=== PATIENT | male | born 1970 | race Caucasian/White ===

== ENCOUNTER 2024-09-03 23:44 | Outpatient (BNV) | payer OTHER, MEDICAID, SELFPAY | END 2024-09-05 17:10 | PROVIDERS: Admitting Provider Psychiatry & Neurology Psychiatry; Visit Provider Radiology Diagnostic Radiology | DX: F48.2 Pseudobulbar affect (principal); F39 Unspecified mood [affective] disorder | CPT/HCPCS: 70551 ==

== ENCOUNTER 2024-09-03 23:44 | Inpatient (IN) | payer MEDICAID, OTHER, SELFPAY ==
--- NOTE | ~2024-09-03 | MR_ITS ---
CLINICAL HISTORY: pseudobulbar symptoms MR Brain without gadolinium Comparison: None Findings: No restricted diffusion to indicate recent ischemia. The major intracranial vascular flow-related signal voids are maintained. No unexpected intracranial susceptibility. No mass effect or midline shift. The ventricles and basilar cisterns are patent. Increased CSF volume in the optic nerve sheaths with flattening of the posterior globes, along with flattened appearance of the pituitary gland and a mostly empty sella. Findings suggest IIH. Paranasal sinuses and mastoid air cells clear. IMPRESSION: 1. No acute finding. CSF fluid distention of the optic nerve sheath posterior globe flattening and partially empty sella raising concern for idiopathic intracranial hypertension in the appropriate clinical setting. This document has been electronically signed by: Donny Heredia MD on 09/05/2024 19:33:12
--- OUTSIDE RECORDS SUMMARY | 2024-09-03 23:47 | XMS_ITS | Encounter Summary ---
Author Organization [facility] Address [phone] [facility] [place] [address] Care Team Providers Care Trout Farmer Name Role Phone Robert Boyer DO Primary Care Provider Mariusz Lloyd MD Unavailable [phone] Encounter Details Date Type Department Care Team ([facility] Contact Info) Description 02/19/2017 Procedure Pass [facility], [place] 2 55 [facility] [address] [place] [address] Social History Tobacco Use Types Packs/Day Years Used Date Smoking Tobacco: Never Assessed Sex and Gender Information Value Date Recorded Sex Assigned at Not on file Gender Identity Not on file Sexual Orientation Not on file documented as of this encounter Plan of Treatment Not on file documented as of this encounter Visit Diagnoses Not on filedocumented in this encounter Care Teams Trout Farmer Relationship Specialty Start Date End Date Robert Boyer DO [address] [place] [address] PCP - General Internal Medicine 01/19/17 Mariusz Lloyd MD [address] [place] [address] [address] [place] [address] [email or web address] Historical LMR Provider 10/03/18 07/30/21 documented as of this encounter Additional Source Comments The information contained in this document represents components of the legal health record. It is not the complete legal health record.[facility]
--- OUTSIDE RECORDS SUMMARY | 2024-09-03 23:47 | XMS_ITS | Referral Summary ---
Author Organization [facility] Address [address] [place] [address] Care Team Providers Care Tornado Chaser Name Role Phone Robert Boyer DO Primary Care Provider Encounters Date Type Department Care Team Description 09/01/2024 Orders Only [facility] [address] [place] [address] Unknown, Doctor from Last 3 Months Allergies No known active allergies Medications citalopram (CeleXA) 20 mg tablet Take 1.5 tablets (30 mg total) by mouth once a day. Please call [phone] for an appointment 135 tablet 3 3 Active Active Problems Problem Noted Date Diagnosed Date Routine general medical exam ination at a health care facility 06/28/2020 Overview (02/26/2023): HEALTH MAINTENANCE CHECKLIST Colonoscopy (starts at avg risk people at 50): Declined colonoscopy referral, agreeable to stool based testing Prostate Cancer Screen (discussed risks/benefits of screening): We will do prostate screening with next lab draw, education provided Flu vaccine (yearly): Declined Pneumovax(one time after age 65): Shingles Vaccine (at or after age 55): Tetanus Vaccine (every 10 years): 2017 COVID-vaccine declined Assessment & Plan (01/24/2022 12:27 PM EDT): Patient was seen today for a routine physical. Colonoscopy recommended to patient, he would like to do fecal occult blood monitoring instead. Routine lab-work ordered including CBC, BMP, lipid panel. Patient also has had intermittantly elevated blood pressure measurements in clinic, and should be monitored for any signs of hypertension. Blood pressure today was 130/78. 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 Assessment & Plan (01/24/2022 12:53 PM EDT): Patient with a history of major depression on Celexa 30 mg since 2019. On this visit, he reports feeling well with improvement in depression symptoms since starting this medication. Recommend continuing current dose of Celexa. We also open the possibility of self tapering down to 20 mg daily but not going any lower than that. We will follow-up with his progress in 1 year or sooner if needed Assessment & Plan (06/28/2020 3:50 PM EST): Patient's PHQ-9 score is 0 today. Patient was previously having a few days of intermittent issues but he seems to be doing very well today and we will continue the current treatment plan Assessment & Plan (04/23/2020 3:15 PM EDT): Patient has been doing well majority of the time with the current dosage. His PHQ 9 score is 0. We talked about strategies about managing 3 days every 2 months that do not go as well as planned. We discussed the idea of increasing citalopram up to 40 mg to help prevent that from happening but in light of his reduced kidney function ultimately I think we should wait and keep him at the 30 mg and monitor further. If he has increased frequency of these issues then we could consider going up to 40 mg Assessment & Plan (06/23/2019 4:20 PM EST): Patient has had an excellent turnaround with 30 mg of citalopram. Recommended that he not adjust his dosage further without discussion with me. Plan to see him back in 3 months for follow-up. Assessment & Plan (05/21/2019 11:23 AM EDT): Patient has severe anxiety and depression. 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 He is asking if I can get records from [facility] to review. In any event, I think he requires SSRI therapy. I educated him and we will start with citalopram with aims to titrate up to 20 mg daily. 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 Oakley. Last Assessment & Plan: Mr Norman Curran is a 47 y/o male who was admitted to the Transplant Surgery Service and taken to the OR for laparoscopic, converted to open left donor nephrectomy and umbilical hernia repair on 05/22/2017. Assessment & Plan (02/26/2023 5:49 PM EDT): Recommend yearly renal function surveillance Assessment & Plan (06/23/2019 4:19 PM EST): Patient has not had any recent lab work so will be sent for CBC, Chem-7 and lipid panel Resolved Problems Problem Noted Date Diagnosed Date Resolved Date Lyme disease 02/23/2021 02/26/2023 Assessment & Plan (02/23/2021 2:24 PM EDT): Patient was diagnosed with Lyme disease based on ECM rash about a month ago. He completed 21 days of doxycycline. We discussed that due to the fact that he has had no symptoms over that time. Aside from some antibiotic related photosensitivity, serologic testing is not needed at this time. Lyme education provided Dry eye 01/08/2017 02/26/2023 Allergic conjunctivitis 10/19/2016 0711/2021 Immunizations Name Administration Dates Next Due Tetanus Toxoid, Reduced Diph theria Toxoid, and Acellular Pertussis Vaccine, Adsorbed 01/08/2017 Social History Tobacco Use Types Packs/Day Years Used Date Smoking Tobacco: Former Smokeless Tobacco: Never Comments:: Transportation Answer Date Recorded Please molly the areas for wh ich the patient would like information or assistance: None Apply 02/26/2023 Lack of Transportation (Medical) Not on file 02/26/2023 Housing Stability Answer Date Recorded Please molly the areas for ich the patient would like information or assistance: None Apply 02/26/2023 Unable to Pay for Housing in the Last Year Not o n file 02/26/2023 Last EPDS Total Score Not on file 02/26/2023 Unstable Housing in the Last Year Not on file 02/26/2023 Sex and Gender Information Value Date Recorded Sex Assigned at Male 02/25/2023 7:41 PM EDT Legal Sex Male 7:23 PM EDT Gender Identity Male 02/25/2023 7:41 PM EDT Sexual Orientation Straight 02/25/2023 7: 41 PM EDT 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 Procedure Name Priority Date/Time Associated Diagnosis Comments ACETAMINOPHEN LEVEL Routine 09/01/2024 9 :58 AM EST SALICYLATE LEVEL Routine 09/01/2024 9:58 AM EST ETHANOL Routine 09/01/2024 9:58 AM EST BASIC METABOLIC PANEL Routine 09/01/2024 9:58 AM EST CBC AUTO DIFFERENTIAL Routine 09/01/2024 9:58 AM EST from Last 3 Months Results * Due to [place] state law, this organization might not be sharing negative HIV tests. * (ABNORMAL) CBC Auto Differential (09/01/2024 9:58 AM EST) WBC 15.2(H) 4.0 - 11.0 10*3/uL 09/01/2024 9:58 AM [facility] RBC 5.27 4.2 - 6.0 10*6/uL 09/01/2024 9:58 AM [facility] Hemoglobin 15.5 12.0 - 16.0 g/dL 09/01/2024 9:58 AM [facility] Hematocrit 45.6 39.0 - 54.0 % 09/01/2024 9:58 AM [facility] MCV 86.5 80.0 - 96.0 fL 09/01/2024 9:58 AM [facility] MCH 29.4 27.0 - 31.0 pg 09/01/2024 9:58 AM [facility] MCHC 34.0 32.0 - 36.0 g/dL 09/01/2024 9:58 AM [facility] RDW 12.2(L) 12.8 - 18.4 % 09/01/2024 9:58 AM [facility] Platelet Count 389 140 - 400 10*3/uL 09/01/2024 9:58 AM [facility] MPV 9.2 8.0 - 12.0 fL 09/01/2024 9:58 AM [facility] Neut Pct Auto 76.9(H) 50 - 70 % 09/01/2024 9:58 AM [facility] Lymphs Pct Auto 13.4(L) 25 - 45 % 9:58 AM [facility] [place] Pct Auto 7.6 4 - 13 % 09/01/2024 9:58 AM [facility] Eos Pct Auto 1.3 0 - 5 % 09/01/2024 9:58 AM [facility] Baso Pct Auto 0.3 0 - 2 % 09/01/2024 9:58 AM [facility] I.G. Pct Auto 0.5 0.0 - 0.5 % 09/01/2024 9:58 AM [facility] NRBC Pct Auto 0.0 0.0 - 0.2 % 09/01/2024 9:58 AM [facility] Neut Abs Auto 11.7(H) 2.2 - 4.8 10*3/uL 09/01/2024 9:58 AM [facility] Lymph Abs Auto 2.0 1.3 - 2.9 10*3/uL 09/01/2024 9:58 AM [facility] [place] Abs Auto 1.16(H) 0.3 - 0.8 10*3/uL 09/01/2024 9:58 AM [facility] Eos Abs Auto 0.2 0.0 - 0.2 10*3/uL 09/01/2024 9:58 AM [facility] Baso Abs Auto 0.1 0.0 - 0.1 10*3/uL 09/01/2024 9:58 AM [facility] I.G. Abs Auto 0.07 0.00 - 0.08 10*3/uL 09/01/2024 9:58 AM [facility] NRBC Abs Auto 0.00 0.000 - 0.012 10*3/uL 09/01/2024 9:58 AM [facility] 09/01/2024 9:58 AM EST us Doctor Unknown LAB BLOOD ORDERABLES Final Resul t [facility] [address] [place] [address], * Ethanol (09/01/2024 9:58 AM EST) Ethanol Level <^3 <3 mg/dL 09/01/2024 9:58 AM [facility] 09/01/2024 9:58 AM EST us Doctor Unknown LAB BLOOD ORDERABLES Final Resul t Performing Organization Address [facility] [place] Phone Number [facility] [address] [place] [phone], [place] * Acetaminophen Level (09/01/2024 9:58 AM EST) Serum Acetone <^2 <2 ug/mL 09/01/2024 9:58 AM [facility] 09/01/2024 9:58 AM EST us Doctor Unknown LAB BLOOD ORDERABLES Final Resul t Performing Organization Address [facility] Phone Number [facility] [address] [place] [phone], [place] * Salicylate Level (09/01/2024 9:58 AM EST) Salicylate < 3.0 <30.0 09/01/2024 9:58 AM EST [facility] 09/01/2024 9:58 AM EST us Doctor Unknown LAB BLOOD ORDERABLES Final Resul t Performing Organization Address [facility] Phone Number [facility] [address] [place] [phone], [place] * (ABNORMAL) Basic Metabolic Panel (09/01/2024 9:58 AM EST) Sodium 143 136 - 145 mmol/L 09/01/2024 9:58 AM [facility] Potassium 4.9 3.5 - 5.1 mmol/L 09/01/2024 9:58 AM [facility] Chloride 108(H) 98 - 107 mmol/L 09/01/2024 9:58 AM [facility] Carbon Dioxide 28 20 - 31 mmol/L 09/01/2024 9:58 AM [facility] Anion Gap 7 5 - 15 mmol/L 09/01/2024 9:58 AM [facility] Glucose Random 106 74 - 106 mg/dL 09/01/2024 9:58 AM [facility] Blood Urea Nitrogen 19 9 - 23 mg/dL 09/01/2024 9:58 AM EST [facility] Serum Creatinine 1.39(H) 0.70 - 1.30 mg/dL 09/01/2024 9:58 AM [facility] Glomerular Filteration Rate Est 61 >60 09/01/2024 9:58 AM [facility] Comment: Units - mL/min/1.73 msq CKD-EPI Creatinine Equation (2020) used as recommended by The National Kidney Foundation. Start date (08/29/22). Calcium 9.9 8.3 - 10.6 mg/dL 09/01/2024 9:58 AM [facility] Comment: Please Note: New method for Calcium testing live 06/02/2024. ? New reference range live 06/02/2024. 09/01/2024 9:58 AM EST us Doctor Unknown LAB BLOOD ORDERABLES Final Resul t [facility] [address] [place] [address], from Last 3 Months Care Teams Tornado Chaser Relationship Specialty Start Date End Date Robert Boyer DO [address] [place] [phone] PCP - General Internal Medicine 02/08/17
--- OUTSIDE RECORDS SUMMARY | 2024-09-03 23:47 | XMS_ITS | Encounter Summary ---
Author Organization [facility] Address [address] [place] [address] Care Team Providers Care Quarry Supervisor Name Role Phone Robert Boyer DO Primary Care Provider [phone] Encounter Details Date Type Department Care Team (Late st Contact Info) Description 09/01/2024 Orders Only [facility] [address] [place] [address] Unknown, Doctor Unknown Unknown, [place] Social History Tobacco Use Types Packs/Day Years [...] file Not on file Not on file documented as of this encounter Plan of Treatment Not on file documented as of this encounter Procedures * Due to [place] state law, this organization might not be sharing negative HIV tests. Procedure Name Priority Date/Time Associated Diagnosis Comments CBC AUTO DIFFERENTIAL Routine 09/01/2024 9:58 AM EST ETHANOL Routine 09/01/2024 9:58 AM EST ACETAMINOPHEN LEVEL Routine 09/01/2024 9 :58 AM EST SALICYLATE LEVEL Routine 09/01/2024 9:58 AM EST BASIC METABOLIC PANEL Routine 09/01/2024 9:58 AM EST documented in this encounter Results * Due to [place] state law, this organization might not be sharing negative HIV tests. * Acetaminophen Level (09/01/2024 9:58 AM EST) Serum Acetone <^2 <2 ug/mL 09/01/2024 9:58 AM EST [facility] 09/01/2024 9:58 AM EST us Doctor Unknown LAB BLOOD ORDERABLES Final Resul t Performing Organization Address City/[facility]/ZIP Co de Phone Number [facility] [address] [place] [phone], * Salicylate Level (09/01/2024 9:58 AM EST) Salicylate < 3.0 <30.0 09/01/2024 9:58 AM EST [facility] 09/01/2024 9:58 AM EST us Doctor Unknown LAB BLOOD ORDERABLES Final Resul t Performing Organization Address City/[facility]/ZIP Co de Phone Number [facility] [address] [place] [address], * Ethanol (09/01/2024 9:58 AM EST) Ethanol Level <^3 <3 mg/dL 09/01/2024 9:58 AM EST [facility] 09/01/2024 9:58 AM EST us Doctor Unknown LAB BLOOD ORDERABLES Final Resul t Performing Organization Address City/[facility]/ZIP Co de Phone Number [facility] [address] [place] [phone], * (ABNORMAL) Basic Metabolic Panel (09/01/2024 9:58 AM EST) Sodium 143 136 - 145 mmol/L 09/01/2024 9:58 AM [facility] Potassium 4.9 3.5 - 5.1 mmol/L 09/01/2024 9:58 AM [facility] Chloride 108(H) 98 - 107 mmol/L 09/01/2024 9:58 AM [facility] Carbon Dioxide 28 20 - 31 mmol/L 09/01/2024 9:58 AM [facility] Anion Gap 7 5 - 15 mmol/L 09/01/2024 9:58 AM [facility] Glucose Random 106 74 - 106 mg/dL 09/01/2024 9:58 AM [facility] Blood Urea Nitrogen 19 9 - 23 mg/dL 09/01/2024 9:58 AM [facility] Serum Creatinine 1.39(H) 0.70 - 1.30 mg/dL 09/01/2024 9:58 AM [facility] Glomerular Filteration Rate Est 61 >60 09/01/2024 9:58 AM [facility] Comment: Units - mL/min/1.73 msq CKD-EPI Creatinine Equation (2020) used as recommended by The National Kidney Foundation. Start date (08/29/22). Calcium 9.9 8.3 - 10.6 mg/dL 09/01/2024 9:58 AM [facility] Comment: Please Note: New method for Calcium testing live 06/02/2024. ? New reference range live 06/02/2024. 09/01/2024 9:58 AM EST us Doctor Unknown LAB BLOOD ORDERABLES Final Resul t Performing Organization Address City/[facility]/ZIP Co de Phone Number [facility] [address] [place] [phone], * (ABNORMAL) CBC Auto Differential (09/01/2024 9:58 AM EST) WBC 15.2(H) 4.0 - 11.0 10*3/uL 09/01/2024 9:58 AM [facility] RBC 5.27 4.2 - 6.0 10*6/uL 09/01/2024 9:58 AM [facility] Hemoglobin 15.5 12.0 - 16.0 g/dL 09/01/2024 9:58 AM [facility] Hematocrit 45.6 39.0 - 54.0 % 09/01/2024 9:58 AM [facility] MCV 86.5 80.0 - 96.0 fL 09/01/2024 9:58 AM [facility] MCH 29.4 27.0 - 31.0 pg 09/01/2024 9:58 AM [facility] MCHC 34.0 32.0 - 36.0 g/dL 09/01/2024 9:58 AM [facility] RDW 12.2(L) 12.8 - 18.4 % 09/01/2024 9:58 AM [facility] Platelet Count 389 140 - 400 10*3/uL 09/01/2024 9:58 AM [facility] MPV 9.2 8.0 - 12.0 fL 09/01/2024 9:58 AM [facility] Neut Pct Auto 76.9(H) 50 - 70 % 09/01/2024 9:58 AM [facility] Lymphs Pct Auto 13.4(L) 25 - 45 % 9:58 AM [facility] Kings Pct Auto 7.6 4 - 13 % 09/01/2024 9:58 AM [facility] Eos Pct Auto 1.3 0 - 5 % 09/01/2024 9:58 AM [facility] Baso Pct Auto 0.3 0 - 2 % 09/01/2024 9:58 AM [facility] I.G. Pct Auto 0.5 0.0 - 0.5 % 09/01/2024 9:58 AM [facility] NRBC Pct Auto 0.0 0.0 - 0.2 % 09/01/2024 9:58 AM [facility] Neut Abs Auto 11.7(H) 2.2 - 4.8 10*3/uL 09/01/2024 9:58 AM [facility] Lymph Abs Auto 2.0 1.3 - 2.9 10*3/uL 09/01/2024 9:58 AM [facility] Kings Abs Auto 1.16(H) 0.3 - 0.8 10*3/uL 09/01/2024 9:58 AM [facility] Eos Abs Auto 0.2 0.0 - 0.2 10*3/uL 09/01/2024 9:58 AM [facility] Baso Abs Auto 0.1 0.0 - 0.1 10*3/uL 09/01/2024 9:58 AM [facility] I.G. Abs Auto 0.07 0.00 - 0.08 10*3/uL 09/01/2024 9:58 AM [facility] NRBC Abs Auto 0.00 0.000 - 0.012 10*3/uL 09/01/2024 9:58 AM [facility] 09/01/2024 9:58 AM EST us Doctor Unknown LAB BLOOD ORDERABLES Final Resul t Performing Organization Address City/State/[facility] Co de Phone Number [facility] [address] [place] [address], documented in this encounter Visit Diagnoses Not on filedocumented in this encounter Care Teams Quarry Supervisor Relationship Specialty Start Date End Date Robert Boyer DO [address] [place] [phone] PCP - General Internal Medicine 02/08/17 documented as of this encounter
--- OUTSIDE RECORDS SUMMARY | 2024-09-03 23:48 | XMS_ITS | Encounter Summary ---
Author Organization [facility] Address [phone] [facility] [place] [address] Care Team Providers Care Turnstile Collector Name Role Phone Robert Boyer DO Primary Care Provider Mariusz Lloyd MD Unavailable [phone] Encounter Details Date Type Department Care Team (Late st Contact Info) Description 12/19/2017 Telephone [facility] [address] [address] Krista Monroy MD 165 [facility] [address] [place] [phone] [email or web address] Social History Tobacco Use Types Packs/Day Years Used Date Smoking Tobacco: Former Cigarettes 1 25 Smokeless Tobacco: Never Alcohol Use Standard Drinks/Week Comments No 0 (1 standard drink = 0.6 oz pur e alcohol) Sex and Gender Information Value Date Recorded Sex Assigned at Not on file Gender Identity Not on file Sexual Orientation Not on file documented as of this encounter Plan of Treatment Not on file documented as of this encounter Visit Diagnoses Not on filedocumented in this encounter Care Teams Turnstile Collector Relationship Specialty Start Date End Date Robert Boyer DO [address] [place] [phone] PCP - General Internal Medicine 01/19/17 Mariusz Lloyd MD [address] [address] [email or web address] Historical LMR Provider 10/03/18 07/30/21 documented as of this encounter Additional Source Comments The information contained in this document represents components of the legal health record. It is not the complete legal health record.[facility]
--- OUTSIDE RECORDS SUMMARY | 2024-09-03 23:48 | XMS_ITS ---
Author Organization [facility] Address [phone] [facility] [place] [address] Care Team Providers Care Head Of Human Resources Name Role Phone Robert Boyer DO Primary Care Provider [phone] Transplant Episode Kidney Donor [facility] ([place], [place]) - [facility] Organ Donated: Left Kidney Recovered on 05/22/2017 Marked as Active Follow-up on 05/22/2017 Kidney CoordinatorKellie Fletcher RN Phone: N/A Fax: N/A Email: N/A Care Team Name Role Phone Fax Email Kellie Fletcher RN Kidney Coordinator N/A N/A N/A FLORENTINO [facility] Safety Specialist N/A N/A N/A Corazon Oakley MD, PhD Transplant Surgeon N/A N/A N/A Fausto Slaughter MD Transplant Medical Physician N/A N/A N/A Events Post-Donation Pre-Donation Admitted: 05/22/2017 Referred: 01/19/2017 Recovered: 05/22/2017 Evaluation began: 01/30/2017 Discharged: 05/26/2017 Committee: 03/14/2017
--- OUTSIDE RECORDS SUMMARY | 2024-09-03 23:48 | XMS_ITS | Encounter Summary ---
Author Organization [facility] Address [phone] Formerly [facility], [facility] [place] [address] Care Team Providers Care Selling Specialist Name Role Phone Robert Boyer DO Primary Care Provider [phone] Mariusz Lloyd MD Unavailable [phone] Encounter Details Date Type Department Care Team ([facility] Contact Info) Description 01/19/2017 Telephone [facility] Transplant Clinic [address] [address] Fausto Slaughter MD [address] [place] [address] [email or web address] Social History Tobacco Use Types Packs/Day Years Used Date Smoking Tobacco: Never Assessed Sex and Gender Information Value Date Recorded Sex Assigned at Not on file Gender Identity Not on file Sexual Orientation Not on file documented as of this encounter Plan of Treatment Not on file documented as of this encounter Visit Diagnoses Not on filedocumented in this encounter Care Teams Selling Specialist Relationship Specialty Start Date End Date Robert Boyer DO [address] [place] [address] PCP - General Internal Medicine 01/19/17 Mariusz Lloyd MD [facility] [address] [address] [email or web address] Historical LMR Provider 10/03/18 07/30/21 documented as of this encounter Additional Source Comments The information contained in this document represents components of the legal health record. It is not the complete legal health record.[facility]
--- OUTSIDE RECORDS SUMMARY | 2024-09-03 23:48 | XMS_ITS | Encounter Summary ---
Author Organization [facility] Address [phone] [facility] [place] [address] Care Team Providers Care Ply Cutter Name Role Phone Robert Boyer DO Primary Care Provider Mariusz Lloyd MD Unavailable [phone] Encounter Details Date Type Department Care Team ([facility] Contact Info) Description 05/22/2017 Procedure Pass [facility] [address] [place] [phone] Social History Tobacco Use Types Packs/Day Years [...] on filedocumented in this encounter Care Teams Ply Cutter Relationship Specialty Start Date End Date Robert Boyer DO [address] [place] [address] PCP - General Internal Medicine 01/19/17 Mariusz Lloyd MD [address] [address] [email or web address] Historical LMR Provider 10/03/18 07/30/21 documented as of this encounter Additional Source Comments The information contained in this document represents components of the legal health record. It is not the complete legal health record.[facility]
--- OUTSIDE RECORDS SUMMARY | 2024-09-03 23:48 | XMS_ITS | Clinical Summary ---
Author Organization [facility] Address [phone] [facility] [place] [address] Care Team Providers Care Principal Web Developer Name Role Phone Merlin Robert Gasper FERGUSON Primary Care Provider Allergies No known active allergies Medications Medication Sig Dispensed Refills Start Date End Date Status acetaminophen (TYLENOL) 325 mg tablet Take 2 tablets (650 mg total) by mouth every 6 (six) hours as needed for mild pain. 0 05/24/2017 Active tamsulosin (FLOMAX) 0.4 mg Cp24 Take 1 capsule (0.4 mg total) by mouth nightly. 30 capsule 1 05/24/2017 Active oxyCODONE 5 MG immediate release tablet Take 1 tablet (5 mg total) by mouth every 4 (four) hours as needed for moderate pain. Pt. may request partial fill 20 tablet 05/26/2017 Active senna (SENOKOT) 8.6 mg tablet Take 2 tablets by mouth 2 (two) times a day as needed for constipation. 60 tablet 05/26/2017 Active polyethylene glycol (MIRALAX) 17 gram packet Take 17 g by mouth daily. 30 packet 05/27/2017 Active docusate sodium (COLACE) 100 MG capsule Take 1 capsule (100 mg total) by mouth 2 (two) times a day as needed for constipation. 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 Oakley. Assessment & Plan (05/25/2017 8:36 AM EDT): Mr Norman Curran is a 47 y/o male who was admitted to the Transplant Surgery Service and taken to the OR for laparoscopic, converted to open left donor nephrectomy and umbilical hernia repair on 05/22/2017. Please see separately dictated operative note for details. In the PACU, his abdomen was soft. His incision was clean, dry, and intact. His pain was well controlled with a PHARMACY BILLING ADJUDICATOR/TRISTAN block and IV Toradol. Following the procedure and recovery, the patient was transferred to the floor and remained stable overnight. His abdomen remained benign. He was hemodynamically stable at POC with clear lungs, a regular heart rate, and appropriate jasmyn-incisional tenderness with a clean dressing overlying his incisions. His pain was well controlled. He was instructed to use an incentive spirometer. He was started on clear liquids however diet was not advanced in the setting of nausea. On POD#1 his HCT had down trended to 31.1 however he remains hemodynamically stable. CBC was repeated and HCT stable at 30.2. Pt tolerating clears however hypoactive bowel sounds noted. Azul catheter was removed in the morning, but needed to be replaced with urinary retention. Flomax started. PHARMACY BILLING ADJUDICATOR was stopped however, was re-initiated overnight secondary to increased pain. Pt reported improvement in pain with dPCA. Creatinine on POD#2 morning was elevated, as expected after donation, at 1.7 from 0.85 prior to admission. This morning he is passing flatus and pain is better controlled. His PO intake is limited, so at this time remains on IVF until PO intake improves. Creatinine today is down trending to 1.47 from 1.70 and urine output remains robust. Plan: - Continue IV fluids this morning until PO intake improved - Continue fulls this AM - will advance this afternoon - Continue PHARMACY BILLING ADJUDICATOR until tolerating oral intake, then transition to oral pain meds - Dulc suppository and optimize bowel reg - remove azul catheter today - OOB as tolerated / IS - [facility] day of discharge orders (re-ordered): - Weight - VS including BP - UA - IP consult to Social work - BMP Dispo: Anticipate discharge to home tomorrow, 05/26/2017 Family History Medical History Relation Comments Psychiatric disorder Neg Hx Suicide Neg Hx Social History Tobacco Use Types Packs/Day Years Used Date Smoking Tobacco: Former Cigarettes 1 25 Smokeless Tobacco: Never Alcohol Use Standard Drinks/Week Comments No 0 (1 standard drink = 0.6 oz pur e alcohol) Education Answer Date Recorded Are you interested in more education? Not on azul e 11/17/2022 Are you concerned about learning? Not on file 11/17/2022 No 11/17/2022 No 11/17/2022 Digital Access Answer Date Recorded No 12/18/2022 No 12/18/2022 No 12/18/2022 Reliable internet access at home? Not on file 12/18/2022 Device with a working camera? Not on file Sex and Gender Information Value Date Recorded Sex Assigned at Not on file Gender Identity Not on file Sexual Orientation Not on file Last Filed Vital Signs Vital Sign Reading Time Taken Comments Blood Pressure 130/86 02/08/2018 3:46 PM EDT Pulse 53 02/08/2018 3:46 PM EDT Denies lightheadedness/dizzi ness. Temperature 35.9 ??C (96.7 ??F) 02/08/2018 3:46 PM EDT Respiratory Rate 18 02/08/2018 3:46 PM EDT Oxygen Saturation 98% 02/08/2018 3:4 6 PM EDT Inhaled Oxygen Concentration - - Weight 76.3 kg (168 lb 3.2 oz) 02/08/2018 9:59 AM EDT Height 182.9 cm (6') 05/22/2017 5:53 AM EDT Body Mass Index 22.81 05/22/2017 5:53 AM EDT Plan of Treatment Health Maintenance Due Date Last Done Comments DEPRESSION SCREENING 1983 SMOKING Hx and SMOKELESS TOBACCO SCREENING 01/24/1984 HEPATITIS B VACCINES (1 of 3 - 19+ 3-dose series) 1990 COLOGUARD 01/24/2016 COLONOSCOPY 01/24/2016 COLORECTAL CANCER SCREENING 01/24/2016 FIT TEST 01/24/2016 FOBT 01/24/2016 SIGMOIDOSCOPY 01/24/2016 VIRTUAL COLONOSCOPY 01/24/2016 PNEUMOCOCCAL VACCINES (50+ years) (1 of 1 - PCV) 2021 ZOSTER VACCINES (1 of 2) 2021 INFLUENZA VACCINE (#1) 2024 COVID-19 VACCINE (1 - 2023-2 5 season) 2024 LIPID PANEL 06/23/2024 06/23/2019, 06/23/2019 Adult Td,Tdap Booster 01/08/2027 01/08/2017 HEPATITIS B SCREENING Completed 05/08/2017 , 01/30/2017 HEPATITIS C SCREENING Completed 05/08/2017 , 05/08/2017, 01/30/2017 HIV ONE-TIME SCREENING (18-6 5 YEARS) Completed 05/08/2017 HEPATITIS A VACCINES Aged Out No long er eligible based on patient's age to complete this topic HIB VACCINES Aged Out No longer eligi ble based on patient's age to complete this topic MENINGOCOCCAL VACCINES (ACWY) Aged Out No longer eligible based on patient's age to complete this topic Medical Devices Not on file Procedures Procedure Name Priority Date/Time Associated Diagnosis Comments HEPATITIS C ANTIBODY, QUALITATIVE Routine 05/08/2017 9:13 AM EDT Physical examination of potential organ donor HEPATITIS B SURFACE ANTIGEN Routine 05/08/2017 9:13 AM EDT Physical examination of potential organ donor from Last 3 Months or Most Recently Relevant to Health Maintenance Results * Hepatitis C antibody, qualitative (05/08/2017 9:13 AM EDT) HCV ANTIBODY Negative Negative [facility] Comment:Antibodies to HCV no t detected. Does not exclude the possibility of exposure to HCV. 05/08/2017 9:13 AM EDT 05/08/2017 11:30 AM EDT Corazon Oakley MD, PhD LAB BLOOD ORDERABLE [facility] [address] [place] [address] * Hepatitis B surface antigen (05/08/2017 9:13 AM EDT) HBV SURFACE ANTIGEN Negative Negative [facility] 05/08/2017 9:13 AM EDT 05/08/2017 11:30 AM EDT Corazon Oakley MD, PhD LAB BLOOD ORDERABLE [facility] [address] [place] [address] from Last 3 Months or Most Recently Relevant to Health Maintenance Norman Curran Personal/Family Self [address] [place] [id number] Norman Curran Personal/Family Self [address] [place] [id number] Norman Curran Personal/Family Self [address] [place] [id number] Norman Curran Transplant Self [address] [place] [id number] Norman Curran Personal/Family Self [address] [place] [id number] Advance Directives Documents on File Type Date Recorded Patient Weblogic Administrator Expl anation Healthcare Proxy 01/31/2017 10:29 AM Care Teams Principal Web Developer Relationship Specialty Start Date End Date Robert Boyer DO [address] [place] [id number] PCP - General Internal Medicine 01/19/17 Additional Source Comments The information contained in this document represents components of the legal health record. It is not the complete legal health record.[facility]
[2024-09-03 23:49] VITALS: BMI 21.5
[2024-09-04 01:36] VITALS: BP 127/91; PULSE 78; RESP 16; TEMP 36.8; O2SAT 97
--- NOTE | 2024-09-04 01:41 | PC.ADMIT ---
PT IS A 54 YEAR OLD, PERSIAN SPEAKING, MALE BROUGHT TO M5 FROM [facility]. CONDITIONAL VOLUNTARY. 15 MINUTE CHECKS. PT WAS ADMITTED FOR INCREASE IN DEPRESSION AND ANXIETY WITH SUICIDAL IDEATION. SKIN CHECK SHOWED A LARGE SCAR ON LEFT SIDE OF ABDOMEN FROM KIDNEY REMOVAL SURGERY. 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 PT REPORTS THAT HIS MENTAL HEALTH SYMPTOMS BEGAN SHORTLY AFTER THE SURGERY WHICH HAD SEVERAL COMPLICATIONS. PT REPORTS LABILE MOOD THAT VARIES BETWEEN DEPRESSION AND EXTREME ENERGY. PT HAS NO THERAPIST, PCP, OR PSYCHIATRIST. HE WAS ON CITALOPRAM OVER A YEAR AGO BUT NO OTHER MED TRIALS. PT STATES THAT HE RECENTLY HAS BEEN LOSING JOBS DUE TO DECREASE IN LEVEL OF FUNCTIONING, HIS HOUSE IS IN [facility], HIS MOTHER 6 MONTHS AGO, AND HIS FATHER HAS SEVERE DEMENTIA. PT HAS GOOD INSIGHT INTO HIS LIFE STRESSORS AND MENTAL HEALTH SYMPTOMS. PT REPORTS I DONT KNOW WHATS WRONG OR IF/HOW IT IS CONNECTED TO THE SURGERY BUT I CANT FIGHT THROUGH LIFE EVERY DAY ANYMORE . PT HAS A GOOD SUPPORT SYSTEM INCLUDING HIS AND THREE CHILDREN. PT DENIES ANY CURRENT MEDICAL CONCERNS ALTHOUGH IS REQUESTING A CT SCAN. PTS TOX SCREEN WAS POSITIVE FOR MARIJUANA. REPORTS THAT HE DRANK HEAVILY FOR APPROXIMATELY 18 YEARS BUT HAS NOT DRANK IN MANY YEARS NOW. REPORTS GOOD SLEEP AND APPETITE. NO CURRENT SI AND FEELS SAFE ON THE UNIT.
[2024-09-04 08:00] VITALS: BP 114/72; PULSE 77; RESP 18; TEMP 36.8
[2024-09-04 09:48] LABS: Estimated Average Glucose 111 mg/dL; Hemoglobin A1C 146.9116 umol/L; Hemoglobin A1c % 5.5 % (<6.0)
[2024-09-04 10:25] LABS: Folate > 20.0 ng/mL (> or = 4.0); Vitamin B12 1666 pg/mL (200-900)
[2024-09-04 10:30] VITALS: BP 141/78; TEMP 36.8; O2SAT 100
[2024-09-04] MEDS: hydrOXYzine HCL 25 MG TABLET PO ×2 (11:49→21:17)
--- NOTE | 2024-09-04 12:28 | P.HPPS_ITS ---
HPI Date of Service: 09/04/24 Chief Complaint: Major Depressive Disorder Sources of Information: patient interviewed, chart reviewed and crisis/core team assessment reviewed HPI Subjective Notes: [place] Warning and Conditional Voluntary Narrative: is a 54 year-old male with who was brought via EMS to [facility] after he was assessed by [facility] due to increase depression, irritability, explosive behaviors which apparently started after he had surgery to donate kidney to his [id number]. 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 His utox was positive for canabinoids. On the unit, pt presents as restless, anxious, somewhat irritable edge. He reports he has been struggling with multiple changes in mood and ability to function since he had surgery for removal of kidney to donate to his [id number]. He describes a change almost in personality. He reports there is a molly difference in who he now compared to who he used to be. He reports that after surgery he noted that he would become easily irritable and explosive. He reports that he also struggled with depressed mood. He reports he that had to stop working at company where he worked for years due to inability to control his temper. He denies ever being physically aggressive towards self or others. He reports some insight in that he is able to tell after the fact that his reaction is excessive compare to the situation and that it affects her relationships with others. 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 He also reports spontaneous episodes of crying, that he can't control but are independent of his mood (him not feeling sad). He reports some impulsivity. He denies hx of visual or auditory hallucinations. He reports sleep is fine. He reports appetite is also fine. He denies any plan or intent to end his life. His main concern is losing control over reactions when he becomes explosive. Prior to surgery, pt reports hx of TBI as child. He also reports hx of alcohol use which stopped 20 years ago. He also reports light and sound sensitivity. He also reports intermittent headaches. Collateral information gathered from his who also confirms that there have been drastic changes in his personality after surgery. She reports irritability and explosive behaviors may be the most salient symptoms. She also reports that he sees him struggling in terms of depression as he is aware that he can't function as he used to. She also reports impulsivity is a concern in terms of him driving, which she is concern about. She also reports episodes of crying that are not congruent with mood. Past Psychiatric History: Inpatient: none prior OP: none currently Past medication trials: celexa (which he reports not helpful) No hx of violence towards others or self. No hx of suicide attempts Medical Evaluation Reviewed: Yes [facility] Family History: early dementia-father. Social History: Pt for about 40 plus years. He has 3 children ages 32, 35, 42. He completed 9th grade. He worked in [employer]. Substance History: Hx of alcohol use more than 20 years ago. he also reports hx of cocaine use. Trauma History: Hx of TBI as child Diagnostics Vital Signs (24Hr): Vital Signs - 24 hr 09/04/24 01:36 09/04/24 08:00 09/04/24 10:30 Temperature 98.2 F 98.3 F 98.2 F Pulse Rate 78 77 Respiratory Rate 16 18 Blood Pressure 127/91 H 114/72 141/78 H Pulse Oximetry 97 100 Oxygen Delivery Method Room Air Room Air Room Air BMI result Body Mass Index 21.5 Labs Labs: Laboratory Results - last 48 hr 09/04/24 09:05 Estimat Average Glucose 111 Hemoglobin A1c % 5.5 Vitamin B12 1666 H Folate > 20.0 Meds/Allergies Allergies Allergies Allergy/AdvReac Type Severity Reaction Status Date / Time No Known Allergies Allergy Verified 09/03/24 23:49 Mental Status Exam Mental Status Exam Narrative: Appearance: wearing hospital gown, appears older than stated age. Fair hygiene Behavior: initially restless and irritable edge, after calmer. Psychomotor: no agitation or retardation noted. No noted tremors. No gait disturbances noted. No nystagmus. Speech: clear, normal rate/rhythm/volume, spontaneous TP: linear TC: wanting help with symptoms Mood: wits end Affect: overwhelmed, frustrated SI: no plan or intent HI: none VH/AH: none Delusions: none Insight/judgment: fair x 2. Memory/cog: alert, oriented x 4. Would complete MOCA- this to assess other cognitive changes including attention, language, recall and executive function. Assessment & Plan Assessment & Plan (1) Mood disorder: Status: Acute Code(s): F39 - Unspecified mood [affective] disorder (2) TBI (traumatic brain injury): Status: Acute Code(s): S06.9XAA - Unspecified intracranial injury with loss of consciousness status unknown, initial encounter Plan Mr. Acuña is a 54 year-old male with hx of impulsive, explosive behaviors, difficulty functioning as he was. it appears exacerbated by surgery, which suspect most likely effects of anesthesia. He had preexisting hx of TBI which could have been exacerbated after surgery. He presents with s/s consistent with TBI including pseudobulbar affect (episodes of crying independent from mood), impulsive, explosive behaviors, inability to function (suspect some executive function impairment along with attention and impulsivity). Discussed doing MRI r/o other etiologies for mood/cognitive changes including but not limited to inflammatory causes, degenerative changes (especially in frontal part of the brain along with cerebellum and brain stem). Will complete MOCA to assess cognitive deficits. Will add inflammatory markers including ESR, CPR. Other immune related RPR, Lyme. I do not suspect these symptoms are s/s of jesus or hypomania. However, he may benefit from mood stabilizer to help with impulsive, explosive behaviors. Will await for results to further discuss phamacological interventions, which explained to patient are many, but for now will start seroquel 50mg po BID, monitor for oversedation, therapeutic effect. INcrease as needed as well as may start mood stabilizer. PLAN 1. Admit to M5, CV, 15 minutes checks for safety 2. order MRI w/o contrast, with neuroquant. ESR, CRP 3. seroquel 50mg po BID, additional PRN seroquel 50mg po Q6H prn agitation 4. obtain collateral information 5. aftercare planning. Patient educated on: diagnosis and medication risk/benefits Informed Consent: understands Reason for continued inpatient stay Substantial Risk for: inability to function Statement Statement: I have reviewed the history and physical and performed a pertinent examination on my patient. No changes have occurred unless specified. If the History and Physical was not performed prior to admission, the Hospitalist's service will be consulted for completing the admission physical. Time Spent With Patient Time: Total time managing care of this patient today _35___ minutes.
--- NOTE | 2024-09-04 13:47 | HO.PM.IMCN ---
History of Present Illness Data of Consult Service Date: 09/04/24 Primary Care Provider: Unknown Physician HPI Reason for consult: Admission H&P Pt is a 54-year-old male without any known significant PMH who is admitted to [facility] for increasing depression with vague SI without specific plan. Hospitalist consult admission H&P. Pt denies any known significant PMH and is not on any home prescription medications. Pt does not follow with a PCP for some time now with last wellness visit 5-7 years ago. Currently has no acute medical complaints. Denies shortness or breath or difficulty breathing. No cough. Denies chest pain/pressure, palpitations. No fever, chills, nausea, vomiting, abdominal pain. Denies headache or acute vision changes. Review of Systems Review of Systems: Pt has no acute medical complaints at this time [facility] Social History Household Members: Spouse Housing: House Do you presently have visiting nurse or other home services: No Patient Tobacco Use Status: Never used Tobacco Smoked in Last 30 Days: No Patient Interested in Nicotine Replacement: No Patient Given Instructions on How to Stop Smoking: No Second Hand Smoke Exposure: No Use of substances other than those prescribed or required for medical reasons: Yes Substance Use Type: Marijuana Substance Use Frequency: Daily Last Used Substance: Days (ago) Currently Displaying Signs/Symptoms of Drug Intoxication Withdrawal: No Any prior treatment program specific to substance use: No Have you been hit, kicked, punched, or otherwise hurt by someone within the past year? If so, by whom?: No Do you feel safe in your current relationship?: Yes Is there a partner from a previous relationship who is making you feel unsafe now?: No Are you made to feel afraid or neglected: No Advance Directives: No Advance Directives Information Provided: No Do you have thoughts of harming others: None Do you have a plan to hurt others: No Plan Recently lost weight without trying: No How much weight loss: Not applicable Eating poorly because of decreased appetite: No Nutrition screen score: 0 Nutrition Risks: No Nutritional Risk Poor oral hygiene: No Sexual orientation: Straight/Heterosexual Meds Allergies Allergy/AdvReac Type Severity Reaction Status Date / Time No Known Allergies Allergy Verified 09/03/24 23:49 Active Medications: Current Medications Acetaminophen (Acetaminophen 325 Mg Tablet) 650 mg PO Q6H PRN PRN Reason: Headache/Pain, Scale 1-10 Al Hydroxide/Mg Hydroxide (Magnesium Hydrox/Alum Hydrox 30 Ml Oral.Susp) 30 ml PO Q6H PRN PRN Reason: Heartburn/Nausea Hydroxyzine HCl (Hydroxyzine Hcl 25 Mg Tablet) 25 mg PO Q6H PRN PRN Reason: mild anxiety Last Admin: 09/04/24 11:49 Dose: 25 mg Magnesium Hydroxide (Milk Of Magnesia 30 Ml Oral.Susp) 30 ml PO DAILY PRN PRN Reason: Constipation Nicotine Polacrilex (Nicotine Polacrilex 2 Mg Gum) 4 mg BUCCAL Q2H PRN PRN Reason: Nicotine Cravings Trazodone HCl (Trazodone Hcl 50 Mg Tablet) 50 mg PO BEDTIME MRX1 PRN PRN Reason: Insomnia Home Medications ?Medication ?Instructions ?Recorded ?Confirmed ?Last Taken ?Type No Known Home Meds 09/03/24 09/03/24 Unknown History Physical Exam Vital Signs and Narrative: Vital Signs: Last Vital Signs Temp 98.2 F 09/04/24 10:30 Pulse 77 09/04/24 08:00 Resp 18 09/04/24 08:00 BP 141/78 H 09/04/24 10:30 Pulse Ox 100 09/04/24 10:30 O2 Del Method Room Air 09/04/24 10:30 BMI result Body Mass Index 21.5 General: AOx3, no acute distress Resp: CTA bilaterally CVS: S1, S2, RRR GI: +BS, NT, no distention Skin: Warm, dry Neuro: Cranial nerves II-XII grossly intact bilaterally. Motor grossly intact bilaterally Extremities: No edema Psych: Calm, cooperative Results Labs Labs: Laboratory Results - last 24 hr 09/04/24 09:05 Estimat Average Glucose 111 Hemoglobin A1c % 5.5 Vitamin B12 1666 H Folate > 20.0 Assessment and Plan (1) Medical clearance for psychiatric admission: Status: Acute Plan Pt is a 54-year-old male without any known significant PMH who is admitted to [facility] for increasing depression with vague SI without specific plan. Hospitalist consult admission H&P. Mood disorder Plan as per Psychiatry Blood pressure Review of vital signs shows BP intermittently mildly elevated as high as 141/78 Currently no indication for treatment at this time Pt otherwise denies any acute medical complaints or chronic medical conditions. Will sign off for now. Thank you for allowing us to participate in the care of this pt. Please re-consult if any acute issue or need arises.
[2024-09-04 15:31] LABS: C Reactive Protein 1.32 mg/dL (< or = 0.50); Cholesterol 178 mg/dL (<200); HDL Cholesterol 46 mg/dL (>40); LDL Cholesterol Calculated 110 mg/dL (<100); Triglycerides 113 mg/dL (<150)
[2024-09-04 15:45] LABS: Free T4 (Free Thyroxine) 1.17 ng/dL (0.71-1.85); Thyroid Stimulating Hormone 1.11 uIU/mL (0.32-4.0)
[2024-09-04 15:47] LABS: Erythrocyte Sedimentation Rate 13 MM/HR (0-15)
[2024-09-04 15:48] VITALS: BMI 21.4
[2024-09-04 16:01] LABS: Folate > 20.0 ng/mL (> or = 4.0); Vitamin B12 1587 pg/mL (200-900)
[2024-09-04 20:00] VITALS: BP 105/68; PULSE 78; RESP 16; TEMP 36.7; O2SAT 98
[2024-09-04] MEDS: QUEtiapine Fumarate 50 MG TABLET PO (21:17)
[2024-09-05 08:00] VITALS: BP 108/72; PULSE 79; RESP 18; TEMP 36.8; O2SAT 98
[2024-09-05] MEDS: QUEtiapine Fumarate 50 MG TABLET PO ×2 (08:54→21:56)
--- NOTE | 2024-09-05 17:58 | P.PNPSI_ITS ---
Subjective Subjective Date of Service: 09/05/24 Reason For Visit: Major Depressive Disorder Subjective Notes: Conditional Voluntary Interim History: Pt slept through the night. He reports seroquel helpful with irritability and anxious mood. Pending MOCA and MRI. ESR wnl, CRP elevated 1.32mg/dl moderately elevated. collateral information and update provided to his . Will get all results and then address psychopharmacology. Review of Systems Review of Systems No chest pain. he denies any pain. No constipation. No loose stools. He reports s/s of presbyopia. No blurry vision. He reports headaches, light and sound sensitivity. Mental Status Exam Mental Status Exam Narrative: Appearance: wearing hospital gown, appears older than stated age. Fair hygiene Behavior: initially restless and irritable edge, after calmer. Psychomotor: no agitation or retardation noted. No noted tremors. No gait disturbances noted. No nystagmus. Speech: clear, normal rate/rhythm/volume, spontaneous TP: linear TC: wanting help with symptoms Mood: wits end Affect: overwhelmed, frustrated SI: no plan or intent HI: none VH/AH: none Delusions: none Insight/judgment: fair x 2. Memory/cog: alert, oriented x 4. Would complete MOCA- this to assess other cognitive changes including attention, language, recall and executive function. Diagnostics Vital Signs (24Hr): Vital Signs - 24 hr 09/04/24 20:00 09/05/24 08:00 Temperature 98.1 F 98.2 F Pulse Rate 78 79 Respiratory Rate 16 18 Blood Pressure 105/68 108/72 Pulse Oximetry 98 98 Oxygen Delivery Method Room Air Room Air BMI result Body Mass Index 21.4 Labs Labs: Laboratory Results - last 48 hr 09/04/24 09/04/24 09/04/24 09:05 14:00 14:00 ESR 13 Estimat Average Glucose 111 Hemoglobin A1c % 5.5 C-Reactive Protein 1.32 H Cancelled Triglycerides 113 Cholesterol 178 LDL Cholesterol, Calc 110 H HDL Cholesterol 46 Vitamin B12 1666 H 1587 H Folate > 20.0 > 20.0 TSH 1.11 Free T4 1.17 Medications Medications Current Medications Acetaminophen (Acetaminophen 325 Mg Tablet) 650 mg PO Q6H PRN PRN Reason: Headache/Pain, Scale 1-10 Al Hydroxide/Mg Hydroxide (Magnesium Hydrox/Alum Hydrox 30 Ml Oral.Susp) 30 ml PO Q6H PRN PRN Reason: Heartburn/Nausea Hydroxyzine HCl (Hydroxyzine Hcl 25 Mg Tablet) 25 mg PO Q6H PRN PRN Reason: mild anxiety Last Admin: 09/04/24 21:17 Dose: 25 mg Magnesium Hydroxide (Milk Of Magnesia 30 Ml Oral.Susp) 30 ml PO DAILY PRN PRN Reason: Constipation Nicotine Polacrilex (Nicotine Polacrilex 2 Mg Gum) 4 mg BUCCAL Q2H PRN PRN Reason: Nicotine Cravings Quetiapine Fumarate (Quetiapine Fumarate 50 Mg Tablet) 50 mg PO BID CARLI Last Admin: 09/05/24 08:54 Dose: 50 mg Quetiapine Fumarate (Quetiapine Fumarate 50 Mg Tablet) 50 mg PO Q6H PRN PRN Reason: agitation Trazodone HCl (Trazodone Hcl 50 Mg Tablet) 50 mg PO BEDTIME MRX1 PRN PRN Reason: Insomnia Allergies Allergies Allergy/AdvReac Type Severity Reaction Status Date / Time No Known Allergies Allergy Verified 09/03/24 23:49 Assessment & Plan Assessment & Plan (1) Medical clearance for psychiatric admission: Status: Acute Code(s): Z00.8 - Encounter for other general examination (2) Mood disorder: Status: Acute Code(s): F39 - Unspecified mood [affective] disorder (3) TBI (traumatic brain injury): Status: Acute Code(s): S06.9XAA - Unspecified intracranial injury with loss of consciousness status unknown, initial encounter Plan Mr. Acuña is a 54 year-old male with hx of impulsive, explosive behaviors, dif ficulty functioning as he was. it appears exacerbated by surgery, which suspect most likely effects of anesthesia. He had preexisting hx of TBI which could have been exacerbated after surgery. He presents with s/s consistent with TBI including pseudobulbar affect (episodes of crying independent from mood), impulsive, explosive behaviors, inability to function (suspect some executive function impairment along with attention and impulsivity). Discussed doing MRI r/o other etiologies for mood/cognitive changes including but not limited to inflammatory causes, degenerative changes (especially in frontal part of the brain along with cerebellum and brain stem). Will complete MOCA to assess cognitive deficits. Will add inflammatory markers including ESR, CPR. Other immune related RPR, Lyme. I do not suspect these symptoms are s/s of jesus or hypomania. However, he may benefit from mood stabilizer to help with impulsive, explosive behaviors. Will await for results to further discuss phamacological interventions, which explained to patient are many, but for now will start seroquel 50mg po BID, monitor for oversedation, therapeutic effect. INcrease as needed as well as may start mood stabilizer. PLAN 1. Admit to [facility], CV, 15 minutes checks for safety 2. order MRI w/o contrast, with neuroquant. ESR, CRP 3. seroquel 50mg po BID, additional PRN seroquel 50mg po Q6H prn agitation 4. obtain collateral information 5. aftercare planning. Reason for continued inpatient stay Substantial Risk for: inability to function Time Spent With Patient Time: Total time managing care of this patient today ____ minutes.
[2024-09-05 20:00] VITALS: BP 129/89; PULSE 87; TEMP 36.8; O2SAT 97
[2024-09-05 20:58] LABS: Lyme Abs Screen <0.90 index
[2024-09-05] MEDS: hydrOXYzine HCL 25 MG TABLET PO (22:00)
[2024-09-06 09:08] VITALS: BP 126/77; PULSE 91; RESP 16; TEMP 37.2; O2SAT 97
[2024-09-06] MEDS: QUEtiapine Fumarate 50 MG TABLET PO ×4 (09:17→20:36)
--- NOTE | 2024-09-06 09:25 | P.PNPSI_ITS ---
Subjective Subjective Date of Service: 09/06/24 Reason For Visit: Major Depressive Disorder Interim History: Pt seen, discussed with his team. Pt reports no current questions, concerns today. He is awake, resting in bed, declines current sx or issues. Medication Compliance: Yes Side effects from medications: No Attending Groups: Intermittent Review of Systems Acute medical concerns: No Review of Systems Review of Systems denies Yes all other systems are reviewed and are negative Mental Status Exam Mental Status Exam Patient Appearance: Appropriate Patient Orientation: Person and Place Level of Consciousness: Alert Patient Behavior: Cooperative Mood Description: Constricted Affect Description: Constricted Ability to Follow Directions: Good Speech Pattern: Spontaneous Speech Diagnostics Vital Signs (24Hr): Vital Signs - 24 hr 09/05/24 20:00 Temperature 98.2 F Pulse Rate 87 Blood Pressure 129/89 Pulse Oximetry 97 Oxygen Delivery Method Room Air BMI result Body Mass Index 21.4 Labs Labs: Laboratory Results - last 48 hr 09/04/24 09/04/24 09/04/24 09:05 14:00 14:00 ESR 13 Estimat Average Glucose 111 Hemoglobin A1c % 5.5 C-Reactive Protein 1.32 H Cancelled Triglycerides 113 Cholesterol 178 LDL Cholesterol, Calc 110 H HDL Cholesterol 46 Vitamin B12 1666 H 1587 H Folate > 20.0 > 20.0 TSH 1.11 Free T4 1.17 Lyme Screen IgG & IgM <0.90 Medications Medications Current Medications Acetaminophen (Acetaminophen 325 Mg Tablet) 650 mg PO Q6H PRN PRN Reason: Headache/Pain, Scale 1-10 Al Hydroxide/Mg Hydroxide (Magnesium Hydrox/Alum Hydrox 30 Ml Oral.Susp) 30 ml PO Q6H PRN PRN Reason: Heartburn/Nausea Hydroxyzine HCl (Hydroxyzine Hcl 25 Mg Tablet) 25 mg PO Q6H PRN PRN Reason: mild anxiety Last Admin: 09/05/24 22:00 Dose: 25 mg Magnesium Hydroxide (Milk Of Magnesia 30 Ml Oral.Susp) 30 ml PO DAILY PRN PRN Reason: Constipation Nicotine Polacrilex (Nicotine Polacrilex 2 Mg Gum) 4 mg BUCCAL Q2H PRN PRN Reason: Nicotine Cravings Quetiapine Fumarate (Quetiapine Fumarate 50 Mg Tablet) 50 mg PO Q6H PRN PRN Reason: agitation Quetiapine Fumarate (Quetiapine Fumarate 50 Mg Tablet) 50 mg PO TID [facility] Last Admin: 09/06/24 09:17 Dose: 50 mg Trazodone HCl (Trazodone Hcl 50 Mg Tablet) 50 mg PO BEDTIME MRX1 PRN PRN Reason: Insomnia Allergies Allergies Allergy/AdvReac Type Severity Reaction Status Date / Time No Known Allergies Allergy Verified 09/03/24 23:49 Assessment & Plan Assessment & Plan (1) Mood disorder: Status: Acute Code(s): F39 - Unspecified mood [affective] disorder (2) TBI (traumatic brain injury): Status: Acute Code(s): S06.9XAA - Unspecified intracranial injury with loss of consciousness status unknown, initial encounter Plan Pt is a 54-year-old male without any known significant PMH who is admitted to [facility] for increasing depression with vague SI without specific plan. Hospitalist consult admission H&P. Mood disorder Plan as per Psychiatry Blood pressure Review of vital signs shows BP intermittently mildly elevated as high as 141/78 Currently no indication for treatment at this time Pt otherwise denies any acute medical complaints or chronic medical conditions. Will sign off for now. Thank you for allowing us to participate in the care of this pt. Please re-consult if any acute issue or need arises. 09/06: Continue tx Reason for continued inpatient stay Substantial Risk for: rapid decompensation Time Spent With Patient Time: Total time managing care of this patient today ____ minutes.
[2024-09-06] MEDS: hydrOXYzine HCL 25 MG TABLET PO ×3 (09:35→21:53)
[2024-09-06 19:57] VITALS: BP 132/75; PULSE 91; RESP 15; TEMP 36.6; O2SAT 99
[2024-09-06] MEDS: traZODone HCL 50 MG TABLET PO (20:35)
[2024-09-07] MEDS: hydrOXYzine HCL 25 MG TABLET PO ×3 (08:11→21:43)
[2024-09-07] MEDS: QUEtiapine Fumarate 50 MG TABLET PO ×3 (08:11→20:39)
--- NOTE | 2024-09-07 09:35 | HO.PSYCHPN ---
Subjective Subjective Date of Service: 09/07/24 Reason For Visit: Major Depressive Disorder Subjective Notes: Conditional Voluntary Healthcare Proxy: No Guardianship: No Medical Problems Affecting Mental Status: No Interim History: Review of MRI Wanting discharge. TDN to on 09/11. Agrees to neuro consult to follow up from MRI, however, will go to [facility] as well if we discharge him before neuro eval (has no neurologist by history so he will be a new pt-encouraged to remain and have this consult for immediate treatment planning). Medication Compliance: Yes Side effects from medications: No Attending Groups: Intermittent Review of Systems Review of Systems denies Mental Status Exam Mental Status Exam Patient Appearance: Appropriate Patient Orientation: Person and Place Level of Consciousness: Alert Patient Behavior: Cooperative Mood Description: Constricted Affect Description: Constricted Ability to Follow Directions: Good Speech Pattern: Spontaneous Speech Diagnostics Vital Signs (24Hr): Vital Signs - 24 hr 09/06/24 19:57 Temperature 97.8 F Pulse Rate 91 Respiratory Rate 15 Blood Pressure 132/75 Pulse Oximetry 99 BMI result Body Mass Index 21.4 Labs Labs: Laboratory Results - last 48 hr 09/04/24 14:00 Lyme Screen IgG & IgM <0.90 Medications Medications Current Medications Acetaminophen (Acetaminophen 325 Mg Tablet) 650 mg PO Q6H PRN PRN Reason: Headache/Pain, Scale 1-10 Al Hydroxide/Mg Hydroxide (Magnesium Hydrox/Alum Hydrox 30 Ml Oral.Susp) 30 ml PO Q6H PRN PRN Reason: Heartburn/Nausea Hydroxyzine HCl (Hydroxyzine Hcl 25 Mg Tablet) 25 mg PO Q6H PRN PRN Reason: mild anxiety Last Admin: 09/07/24 08:11 Dose: 25 mg Magnesium Hydroxide (Milk Of Magnesia 30 Ml Oral.Susp) 30 ml PO DAILY PRN PRN Reason: Constipation Nicotine Polacrilex (Nicotine Polacrilex 2 Mg Gum) 4 mg BUCCAL Q2H PRN PRN Reason: Nicotine Cravings Quetiapine Fumarate (Quetiapine Fumarate 50 Mg Tablet) 50 mg PO Q6H PRN PRN Reason: agitation Last Admin: 09/06/24 20:36 Dose: 50 mg Quetiapine Fumarate (Quetiapine Fumarate 50 Mg Tablet) 50 mg PO TID CARLI Last Admin: 09/07/24 08:11 Dose: 50 mg Trazodone HCl (Trazodone Hcl 50 Mg Tablet) 50 mg PO BEDTIME MRX1 PRN PRN Reason: Insomnia Last Admin: 09/06/24 20:35 Dose: 50 mg Allergies Allergies Allergy/AdvReac Type Severity Reaction Status Date / Time No Known Allergies Allergy Verified 09/03/24 23:49 Assessment & Plan Assessment & Plan (1) Mood disorder: Status: Acute Code(s): F39 - Unspecified mood [affective] disorder (2) TBI (traumatic brain injury): Status: Acute Code(s): S06.9XAA - Unspecified intracranial injury with loss of consciousness status unknown, initial encounter Plan Pt is a 54-year-old male without any known significant PMH who is admitted to [facility] for increasing depression with vague SI without specific plan. Hospitalist consult admission H&P. Mood disorder Plan as per Psychiatry Blood pressure Review of vital signs shows BP intermittently mildly elevated as high as 141/78 Currently no indication for treatment at this time Pt otherwise denies any acute medical complaints or chronic medical conditions. Will sign off for now. Thank you for allowing us to participate in the care of this pt. Please re-consult if any acute issue or need arises. 09/06: Continue tx 09/07: Neuro consult TDN 09/11 Reason for continued inpatient stay Substantial Risk for: rapid decompensation Time Spent With Patient Time: Total time managing care of this patient today ____ minutes.
[2024-09-07 10:16] VITALS: BP 138/94; PULSE 84; RESP 16; TEMP 36.9; O2SAT 99
[2024-09-07 19:35] VITALS: BP 131/82; PULSE 98; TEMP 36.7; O2SAT 98
[2024-09-07] MEDS: traZODone HCL 50 MG TABLET PO ×2 (20:39→21:43)
[2024-09-07 23:35] LABS: RPR Rapid Plasma Reagin NON-REACTIVE (NON-REACTIVE)
[2024-09-08 08:00] VITALS: BP 116/78; PULSE 76; RESP 16; TEMP 36.8; O2SAT 99
[2024-09-08] MEDS: hydrOXYzine HCL 25 MG TABLET PO ×2 (08:16→16:22)
[2024-09-08] MEDS: QUEtiapine Fumarate 50 MG TABLET PO ×2 (08:16→16:22)
--- NOTE | 2024-09-08 08:25 | HO.PSYCHPN ---
Subjective Subjective Date of Service: 09/08/24 Reason For Visit: Major Depressive Disorder Subjective Notes: Conditional Voluntary Healthcare Proxy: No Guardianship: No Medical Problems Affecting Mental Status: No Interim History: Anxious to discharge. In milieu, social with peers, reports feeling bored at times. Continues to agree that neuro eval will be practical to have here MRI questions Idiopathic Intracranial HTN Medication Compliance: Yes Side effects from medications: No Attending Groups: Intermittent Review of Systems Acute medical concerns: No Review of Systems Review of Systems denies Mental Status Exam Mental Status Exam Patient Appearance: Appropriate Patient Orientation: Person and Place Level of Consciousness: Alert Patient Behavior: Cooperative Mood Description: Constricted Affect Description: Constricted Ability to Follow Directions: Good Speech Pattern: Spontaneous Speech Diagnostics Vital Signs (24Hr): Vital Signs - 24 hr 09/07/24 10:16 09/07/24 19:35 09/08/24 08:00 Temperature 98.4 F 98.0 F 98.3 F Pulse Rate 84 98 76 Respiratory Rate 16 16 Blood Pressure 138/94 H 131/82 116/78 Pulse Oximetry 99 98 99 Oxygen Delivery Method Room Air Room Air Room Air BMI result Body Mass Index 21.4 Labs Labs: Laboratory Results - last 48 hr 09/04/24 14:00 RPR NON-REACTIVE Lyme Progressive Test TNP Medications Medications Current Medications Acetaminophen (Acetaminophen 325 Mg Tablet) 650 mg PO Q6H PRN PRN Reason: Headache/Pain, Scale 1-10 Al Hydroxide/Mg Hydroxide (Magnesium Hydrox/Alum Hydrox 30 Ml Oral.Susp) 30 ml PO Q6H PRN PRN Reason: Heartburn/Nausea Hydroxyzine HCl (Hydroxyzine Hcl 25 Mg Tablet) 25 mg PO Q6H PRN PRN Reason: mild anxiety Last Admin: 09/08/24 08:16 Dose: 25 mg Magnesium Hydroxide (Milk Of Magnesia 30 Ml Oral.Susp) 30 ml PO DAILY PRN PRN Reason: Constipation Nicotine Polacrilex (Nicotine Polacrilex 2 Mg Gum) 4 mg BUCCAL Q2H PRN PRN Reason: Nicotine Cravings Quetiapine Fumarate (Quetiapine Fumarate 50 Mg Tablet) 50 mg PO Q6H PRN PRN Reason: agitation Last Admin: 09/06/24 20:36 Dose: 50 mg Quetiapine Fumarate (Quetiapine Fumarate 50 Mg Tablet) 50 mg PO TID CARLI Last Admin: 02/17/25 08:16 Dose: 50 mg Trazodone HCl (Trazodone Hcl 50 Mg Tablet) 50 mg PO BEDTIME MRX1 PRN PRN Reason: Insomnia Last Admin: 09/07/24 21:43 Dose: 50 mg Allergies Allergies Allergy/AdvReac Type Severity Reaction Status Date / Time No Known Allergies Allergy Verified 09/03/24 23:49 Assessment & Plan Assessment & Plan (1) Mood disorder: Status: Acute Code(s): F39 - Unspecified mood [affective] disorder (2) TBI (traumatic brain injury): Status: Acute Code(s): S06.9XAA - Unspecified intracranial injury with loss of consciousness status unknown, initial encounter Plan Pt is a 54-year-old male without any known significant PMH who is admitted to [facility] for increasing depression with vague SI without specific plan. Hospitalist consult admission H&P. Mood disorder Plan as per Psychiatry Blood pressure Review of vital signs shows BP intermittently mildly elevated as high as 141/78 Currently no indication for treatment at this time Pt otherwise denies any acute medical complaints or chronic medical conditions. Will sign off for now. Thank you for allowing us to participate in the care of this pt. Please re-consult if any acute issue or need arises. 09/06: Continue tx 09/08: Continue tx Reason for continued inpatient stay Substantial Risk for: rapid decompensation Time Spent With Patient Time: Total time managing care of this patient today ____ minutes.
--- NOTE | 2024-09-08 15:50 | P.CNNE_ITS ---
History of Present Illness Data of Consult Service Date: 09/08/24 Primary Care Provider: Unknown Physician HPI Reason for consult: Abnormal brain MRI 54 years old man I was asked to see for reported abnormality of brain MRI in his behavioral syndrome. 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 He said that after that operation he was a different man. Apparently there were some complications of surgery. Surgery was supposed to be laparoscopic but there was injury to an artery in his abdomen had to be open. Despite that, it is not clear if he had any hypotensive episode were an injury. This experience head tremendous impact on him. He stopped working and became depressed. He was prescribed citalopram that he took for a while but then he lost his insurance and stopped taking it. For next many years he did not take proper medicines or take care of himself. Now he was admitted for management of depression and behavioral symptoms. 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 Review of Systems Review of Systems: He complain of occasional migraine type of headache. No seizure-like episode. [facility] Social History Social History Household Members: Spouse Housing: House Do you presently have visiting nurse or other home services: No Patient Tobacco Use Status: Never used Tobacco Smoked in Last 30 Days: No Patient Interested in Nicotine Replacement: No Patient Given Instructions on How to Stop Smoking: No Second Hand Smoke Exposure: No Use of substances other than those prescribed or required for medical reasons: Yes Substance Use Type: Marijuana Substance Use Frequency: Daily Last Used Substance: Days (ago) Currently Displaying Signs/Symptoms of Drug Intoxication Withdrawal: No Any prior treatment program specific to substance use: No Have you been hit, kicked, punched, or otherwise hurt by someone within the past year? If so, by whom?: No Do you feel safe in your current relationship?: Yes Is there a partner from a previous relationship who is making you feel unsafe now?: No Are you made to feel afraid or neglected: No Advance Directives: No Advance Directives Information Provided: No Do you have thoughts of harming others: None Do you have a plan to hurt others: No Plan Recently lost weight without trying: No How much weight loss: Not applicable Eating poorly because of decreased appetite: No Nutrition screen score: 0 Nutrition Risks: No Nutritional Risk Poor oral hygiene: No Sexual orientation: Straight/Heterosexual Meds Allergies Allergy/AdvReac Type Severity Reaction Status Date / Time No Known Allergies Allergy Verified 09/03/24 23:49 Active Medications: Current Medications Acetaminophen (Acetaminophen 325 Mg Tablet) 650 mg PO Q6H PRN PRN Reason: Headache/Pain, Scale 1-10 Al Hydroxide/Mg Hydroxide (Magnesium Hydrox/Alum Hydrox 30 Ml Oral.Susp) 30 ml PO Q6H PRN PRN Reason: Heartburn/Nausea Hydroxyzine HCl (Hydroxyzine Hcl 25 Mg Tablet) 25 mg PO Q6H PRN PRN Reason: mild anxiety Last Admin: 09/08/24 08:16 Dose: 25 mg Magnesium Hydroxide (Milk Of Magnesia 30 Ml Oral.Susp) 30 ml PO DAILY PRN PRN Reason: Constipation Nicotine Polacrilex (Nicotine Polacrilex 2 Mg Gum) 4 mg BUCCAL Q2H PRN PRN Reason: Nicotine Cravings Quetiapine Fumarate (Quetiapine Fumarate 50 Mg Tablet) 50 mg PO Q6H PRN PRN Reason: agitation Last Admin: 09/06/24 20:36 Dose: 50 mg Quetiapine Fumarate (Quetiapine Fumarate 50 Mg Tablet) 50 mg PO TID CARLI Last Admin: 09/08/24 08:16 Dose: 50 mg Trazodone HCl (Trazodone Hcl 50 Mg Tablet) 50 mg PO BEDTIME MRX1 PRN PRN Reason: Insomnia Last Admin: 09/07/24 21:43 Dose: 50 mg Home Medications ?Medication ?Instructions ?Recorded ?Confirmed ?Last Taken ?Type No Known Home Meds 09/03/24 09/03/24 Unknown History Physical Exam Vital Signs: Vital Signs: Last Vital Signs Temp 98.3 F 09/08/24 08:00 Pulse 76 09/08/24 08:00 Resp 16 09/08/24 08:00 BP 116/78 09/08/24 08:00 Pulse Ox 99 09/08/24 08:00 O2 Del Method Room Air 09/08/24 08:00 BMI result Body Mass Index 21.4 Neuro: Other: He is alert and awake with normal spontaneity of speech fluency comprehension and affect. Face is symmetrical. Visual chen are full. Deep tendon reflexes are trace. Plantars are flexor. Balance gait and coordination are normal. Speech is normal. Results Labs Labs: His MRI of brain without contrast was reviewed. It revealed subtle cortical atrophy. Empty sella turcica was noted. Assessment and Plan (1) Mood disorder: Status: Acute 54 years old man who donated a kidney few years ago and after that was diagnosed with depression. He said that he was a different man after that. Medical records were not available in it is not clear what kind of complications happened during the surgery. Behavioral complications are not uncommon after organ donation, which may have complex set of reasons including the possibility that there was an underlying condition unmasked by that experience. As far as possibility of pseudotumor cerebri is concerned, he does not have clinical features are body habitus. Findings related to that or just incidental findings. If there is any, there real finding is mild cortical atrophy. With that finding and his psychological symptoms, a dementing process should be considered. I recommend brain PET scan, which can help in more than one ways. Procedures Date of Service Date of Service: 09/08/24
--- NOTE | 2024-09-08 18:09 | P.DS_ITS ---
DS: Providers Provider Date of Service: 09/08/24 Date of admission: 09/03/24 23:44 Date of discharge: 09/08/24 Primary care physician: Unknown Physician Admitting clinician: Rhonda Boggs Attending physician on admission: Royer Drummond Consults: 09/03/24 23:53 Consult to Hospitalist Routine Comment: Consulting Provider: [facility] [place] [facility] [place] [facility] Reason For Exam: OSH admission 09/06/24 11:13 Consult to Neurology Routine Consulting Provider: [facility] [place] Reason for consultation: MRI showing IIH,psedobulbar affect symptoms Has provider been notified: Yes 09/08/24 10:51 Consult to Neurology Routine Consulting Provider: [facility] [place] [facility] [place] Reason for consultation: 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 Has provider been notified: No Attending physician on discharge: Royer Drummond Discharging clinician: Rhonda Boggs DS: Diagnosis Discharge Diagnosis (1) Mood disorder: Status: Acute (2) TBI (traumatic brain injury): Status: Acute DS: Medications Discharge Medications Home Medications: Previous Rx's ?Medication ?Instructions ?Recorded quetiapine 50 mg tablet 50 mg PO TID #9 tabs 09/08/24 trazodone 50 mg tablet 50 mg PO BEDTIME MRX1 PRN Insomnia 09/08/24 #30 tabs Mental Status Exam Mental Status Exam Patient Appearance: Appropriate Patient Orientation: Person and Place Level of Consciousness: Alert Patient Behavior: Cooperative Mood Description: Constricted Affect Description: Constricted Ability to Follow Directions: Good Speech Pattern: Spontaneous Speech Data Data Completed and Pending Completed studies during hospitalization [Text1]: 09/04/24 09/04/24 09/04/24 09:05 14:00 14:00 ESR 13 Estimat Average Glucose 111 Hemoglobin A1c % 5.5 C-Reactive Protein 1.32 H Cancelled Triglycerides 113 Cholesterol 178 LDL Cholesterol, Calc 110 H HDL Cholesterol 46 Vitamin B12 1666 H 1587 H Folate > 20.0 > 20.0 TSH 1.11 Free T4 1.17 GILBERTO Screen GILBERTO Titer GILBERTO Titer 2 GILBERTO Titer 3 GILBERTO Pattern GILBERTO Pattern 2 GILBERTO Pattern 3 RPR Titer TNP RPR NON-REACTIVE Lyme Screen IgG & IgM <0.90 Lyme Progressive Test TNP 09/05/24 19:12 ESR Estimat Average Glucose Hemoglobin A1c % C-Reactive Protein Triglycerides Cholesterol LDL Cholesterol, Calc HDL Cholesterol Vitamin B12 Folate TSH Free T4 GILBERTO Screen Pending GILBERTO Titer Pending GILBERTO Titer 2 Pending GILBERTO Titer 3 Pending GILBERTO Pattern Pending GILBERTO Pattern 2 Pending GILBERTO Pattern 3 Pending RPR Titer RPR Lyme Screen IgG & IgM Lyme Progressive Test DS: Summary Hospital Course Hospital Course: Admission to adult psychiatry for evaluation of mood disorder post TBI. Medicati ons were evaluate and adjusted. Neurology was consulted and recommended a PET Scan. Pt, once the neurology consult was completed, asked to discharge. He and family will follow up with his primary care physician and treatment team with [facility] for ongoing care and treatment. Status at Discharge Functional status at discharge: independent ambulation Overall status at discharge: patient is progressing back to baseline Time Spent with Patient Time attestation: Total time managing care of this patient today ____ minutes. Time spent: Less than 30 minutes Discharge Plan Discharge Anticipated Discharge Date/Time: 09/08/24 17:00 Patient Disposition: Home, Self-Care Discharge Diagnosis: TBI Mood Disorder Referrals: Physician,Unknown J [Primary Care Provider] - 1 Week (please follow-up with PCP within 1 week for follow-up appt) Discharge Medications: New trazodone 50 mg Tablet 50 mg PO BEDTIME MRX1 PRN (Reason: Insomnia) Qty: 30 0RF quetiapine 50 mg Tablet 50 mg PO TID Qty: 9 0RF Discharge Orders: Discharge Order (Routine); Ordered 09/08/24 Ordered By: Lidia Damon Diet: Advance to usual diet Activity on Discharge: As tolerated Stand Alone Forms: Patient Portal Discharge page, Community Support Print Language: Sami Care Plan Goals: Mood and Behavioral Stabilization Health Concerns: Mood and Behavioral Stabilization Plan of Treatment: Follow up with your primary care physicial for PET Scan scheduling Take medications as directed Assessment: Pt requesting discharge post neuro consult He is aware he will need to find follow up out patient care as he refuses to wait for the team to make appointments with him. Discharge Date/Time: 09/08/24 18:31
[2024-09-11 08:44] LABS: Anti Nuclear Antibody Screen NEGATIVE (NEGATIVE)
== END 2024-09-08 18:31 | disposition home or self-care (01) | DRG 753 ==
PROVIDERS: Social Worker; Admitting Provider Psychiatry & Neurology Psychiatry; Visit Provider Psychiatry & Neurology Psychiatry
DX: F39 Unspecified mood [affective] disorder (principal); G31.9 Degenerative disease of nervous system, unspecified; Z63.4 Disappearance and death of family member; Z87.820 Personal history of traumatic brain injury; Z52.4 Kidney donor
CPT/HCPCS: 36415; 70551; 76377; 80061; 82607; 82746; 83036; 84439; 84443; 85652; 86038; 86140; 86592; 86617; 86618

== ENCOUNTER → 2024-09-03 23:44 | Outpatient (BNV) | payer MEDICAID, SELFPAY | PROVIDERS: Admitting Provider Psychiatry & Neurology Psychiatry; Visit Provider Student in an Organized Health Care Education/Training Program | DX: Z00.8 Encounter for other general examination (principal) | CPT/HCPCS: 99222 ==

== ENCOUNTER → 2024-09-03 23:44 | Outpatient (BNV) | payer OTHER, MEDICAID, SELFPAY | PROVIDERS: Admitting Provider Psychiatry & Neurology Psychiatry; Visit Provider Social Worker | DX: F39 Unspecified mood [affective] disorder (principal); S06.9XAS Unspecified intracranial injury with loss of consciousness status unknown, sequela | CPT/HCPCS: 90792; 99231; 99232 ==

== ENCOUNTER → 2024-09-03 23:44 | Outpatient (BNV) | payer OTHER, MEDICAID, SELFPAY | PROVIDERS: Admitting Provider Psychiatry & Neurology Psychiatry; Visit Provider Psychiatry & Neurology Neurology | DX: F39 Unspecified mood [affective] disorder (principal) | CPT/HCPCS: 99222 ==